=== PATIENT | female | born 1960 | race African-American/Black ===

== ENCOUNTER 2024-06-01 22:06 | Emergency (ER) | payer OTHER ==
[2024-06-02] MEDS: Triamcinolone Acetonide 40 MG/ML 1 ML SDV INJECT ONE (01:24)
== END 2024-06-02 02:27 | disposition home or self-care (01) ==
LOC: JD.ED 22:06
DX: M23.92 Unspecified internal derangement of left knee (principal); I10 Essential (primary) hypertension; Z86.16 Personal history of COVID-19; Z79.899 Other long term (current) drug therapy; Z88.8 Allergy status to other drugs, medicaments and biological substances
CPT/HCPCS: 73562; 96372; 99283; J3301